=== PATIENT | female | born 1960 | race Caucasian/White ===

== ENCOUNTER 2023-10-11 06:57 | Day surgery (SDC) | payer OTHER ==
[~2023-10-11] VITALS: Ht 170.2 cm; Wt 59.9 kg
[2023-10-11] MEDS ORDERED: DEXAMETHASONE SOD PHOSPHATE 4 MG/ML VIAL ONE (08:43)
[2023-10-11] MEDS ORDERED: MORPHINE 4 MG INJ. 4 MG/ML VIAL IVP PRN (08:45)
[2023-10-11] MEDS ORDERED: ONDANSETRON HCL 4 MG/2 ML VIAL IVP PRN ×2 (08:45→10:00)
[2023-10-11] MEDS ORDERED: LR 1,000 ML IV SCH (08:45)
[2023-10-11] MEDS ORDERED: MEPERIDINE HCL/PF 25 MG/ML DISP.SYRIN IVP PRN (08:45)
[2023-10-11 09:00] VITALS: O2SAT 98
[2023-10-11] MEDS ORDERED: ONDANSETRON 4 MG ODT TAB PO PRN (10:00)
[2023-10-11] MEDS ORDERED: ACETAMINOPHEN 500 MG TABLET PO PRN (10:00)
[2023-10-11] MEDS ORDERED: IBUPROFEN 600 MG TABLET PO PRN (10:00)
[2023-10-11 12:00] VITALS: BP_SYST 111; PULSE 70; RESP 18
== END 2023-10-11 11:47 | disposition home or self-care (01) ==
LOC: SDS 06:57 → SMU 07:00 → SDS 11:47
PROVIDERS: ATTEND Otolaryngology
DX: J38.01 Paralysis of vocal cords and larynx, unilateral (principal); J35.01 Chronic tonsillitis; R49.0 Dysphonia; K21.9 Gastro-esophageal reflux disease without esophagitis; E03.9 Hypothyroidism, unspecified; M19.90 Unspecified osteoarthritis, unspecified site; Z79.899 Other long term (current) drug therapy; Z85.850 Personal history of malignant neoplasm of thyroid
CPT/HCPCS: 87081; 31571; J3490; J1100; J2765; J3465; J2405; J2704; J0330; J3010; J7120; L8607